=== PATIENT | female | born 1965 ===

== ENCOUNTER 2017-05-08 10:04 | Outpatient (CLI) | payer OTHER | END 2017-05-08 10:08 | disposition home or self-care (01) | LOC: SONOGRAMA 10:04 | DX: E04.2 Nontoxic multinodular goiter (principal) ==

== ENCOUNTER 2019-07-06 10:41 | Outpatient (CLI) | payer OTHER | END 2019-07-06 10:54 | disposition home or self-care (01) | LOC: RX STUDY 10:41 | DX: K44.9 Diaphragmatic hernia without obstruction or gangrene (principal) ==